=== PATIENT | female | born 1965 | race African-American/Black ===

== ENCOUNTER 2016-08-30 14:21 | Emergency (ER) ==
--- NOTE | 2016-08-30 15:05 | REP ---
Clinical: Trauma. Technique: AP, lateral, bilateral oblique views of the left ankle. Findings: Nondisplaced oblique fracture of the distal fibular metaphysis appreciated. Diffuse soft tissue swelling noted. Ankle mortise appears intact. Impression: Nondisplaced oblique fracture of the distal fibular metaphysis. Signed by Nabor Guzman MD 08/30/2016 02:56 P
[2016-08-30] MEDS ORDERED: NORCO, ANEXSIA 5/325MG TABLET (HYDROcodone/ACETAMINOPHEN) As Ordered ONE (15:08)
[2016-08-30] MEDS ORDERED: ONDANSETRON 4 MG ORAL DISINTEGRATING TAB (S0181) As Ordered ONE (15:08)
--- NOTE | 2016-08-30 15:36 | EDDOCDS ---
Nurse's Notes [facility] Name: Tiffany Antoine Age: 51 yrs Sex: Female : 1965 Arrival Date: 08/30/2016 Time: 14:21 Bed I6 / 28 Private MD: NO PRIMARY PHYSICIAN, . Diagnosis: Nondisplaced fracture of lateral malleolus of left fibula Presentation: 08/30 14:36 Presenting complaint: Patient states: left ankle injury after falling down stairs at [facility] 0100 today. swelling to outer aspect of ankle. The patients lower extremity appears normal on examination. Adult Sepsis Screening: The patient does not have new or worsening altered mentation. Patient's respiratory rate is less than 22. Systolic blood pressure is greater than 100. Patient has a qSOFA score of 0- Negative Sepsis Screen. Suicide/Homicide risk assessment- the patient denies having any suicidal and/or homicidal ideations and does not present with any other emotional, behavioral or mental health complaints. Status: Patient is not a web services professional or dependent. Transition of care: patient was not received from another setting of care. 14:36 Acuity: LUCIA Level 4 [facility] 14:36 Method Of Arrival: Wheelchair [facility] Triage Assessment: 14:38 General: Appears in no apparent distress, Behavior is appropriate for age, cooperative. srm Pain: Pain currently is 10 out of 10 on a pain scale. 14:39 Pt Declines HIV testing. Musculoskeletal: Capillary refill < 3 seconds in left toes No srm deformity noted Reports pain in left ankle. Historical: - Allergies: IODINEIODINE CONTAINING; Betadine; provodone; - Home Meds: 1. none - PMHx: Seizure Disorder; - PSHx: Tubal ligation; Tonsillectomy; - Social history: Smoking status: Patient uses tobacco products, current every day smoker. No barriers to communication noted, The patient speaks fluent [place]inean, Speaks appropriately for age. - Family history: Not pertinent. - : The pt / caregiver states he / she is not on anticoagulants. Home medication list is obtained from the patient. - Exposure Risk Screening:: None identified. Screenin:31 Screening information is obtained from the patient. Fall risk: No risks identified. mcp Assistance ADL's: requires no assistance with activities of daily living. Abuse/DV Screen: The patient / caregiver reports he/she is: not in a situation that causes fear, pain or injury. Nutritional screening: No deficits noted. Advance Directives: Currently, there is no health care proxy. There is no active DNR order. There is no Power of Line Tender [place]. home support is adequate. Assessment: 15:00 General: Appears uncomfortable, Behavior is cooperative. Pain: Location: left lateral mcp ankle Pain currently is 6 out of 10 on a pain scale. Neurological: No deficits noted. Respiratory: Airway is patent Respiratory effort is even, unlabored. Derm: Skin is pink, warm & dry. Musculoskeletal: Circulation, motion, and sensation intact Swelling present in left lateral ankle Signs and Symptoms of Compartment Syndrome: no signs of compartment syndrome. Vital Signs: 14:23 BP 127 / 76; Pulse 90; Resp 18 S; Temp 97.3(O); Pulse Ox 98% on R/A; Weight 72.57 kg gr2 (R); Height 5 ft. 3 in. (160.02 cm) (R); Pain 10/10; 14:23 Body Mass Index 28.34 (72.57 kg, 160.02 cm) gr2 Vitals: 14:23 Log In Time: August 30, 2016 at 14:23. gr2 ED Course: 14:22 Patient visited by Ronda Montes. gr2 14:22 Patient moved to Waiting gr2 14:23 NO PRIMARY PHYSICIAN, . is Private Physician. gr2 14:27 Patient visited by Ronda Montes. gr2 14:28 Patient moved to Pre RCE gr2 14:37 Triage Initiated srm 14:54 Patient moved to I6 / 28 kr3 14:58 [facility] cc10 14:58 Brandan Gandara MD is Attending Physician. cc10 14:58 Patient visited by Leonardo Orellana PA-C. cc10 14:58 Patient visited by Leonardo Orellana PA-C. cc10 15:12 Patient visited by Mindy Torres RN. [facility] 15:17 [facility] is Referral Physician. cc10 15:20 Ankle, Complete Returned. EDMS 15:32 The patient / caregiver is instructed regarding the plan of care and ED course. Patient mcp has correct armband on for positive identification. Bed in low position. Call light in reach. Adult w/ patient. 15:32 No IV's were initiated during this patient's visit. No procedures done that require mcp assistance. Crutch training done. Posterior lower leg splint applied on left leg. Patient with positive distal sensation and brisk distal capillary refill after application. Administered Medications: 15:12 Drug: HYDROcodone-acetaminophen 2 tabs [hydrocodone 5 mg-acetaminophen 325 mg tablet (2 mcp tabs)] Route: PO; 15:12 Drug: Ondansetron ODT 4 mg [ondansetron 4 mg disintegrating tablet (1 tabs)] Route: PO; [facility] Order Results: Radiology Order: Ankle, Complete Test: Ankle, Complete REASON FOR EXAMINATION: Trauma; Clinical: Trauma.; ; Technique: AP, lateral, bilateral oblique views of the left ankle.; ; Findings:; Nondisplaced oblique fracture of the distal fibular metaphysis appreciated.; Diffuse soft tissue swelling noted. Ankle mortise appears intact.; ; Impression:; Nondisplaced oblique fracture of the distal fibular metaphysis.; ; ; Signed by; Nabor Guzman MD 08/30/2016 02:56 P; Outcome: 15:17 Discharge ordered by Provider. cc10 15:34 Discharge Assessment: patient administered narcotics - yes. Pt provided with safe mcp discharge. The following High Risk Discharge criteria are identified: None. Discharged to home via wheelchair, with crutches, with family. Condition: stable. Discharge instructions given to patient, Instructed on discharge instructions, follow up and referral plans. medication usage, no driving heavy equipment, no drinking with medication, Demonstrated understanding of instructions, crutch walking, medications, Pt was receptive of discharge instructions/ teaching. Prescriptions given X 1. No special radiology studies were completed. Property sent home with patient. 15:35 Patient left the ED. [facility] Signatures: Dispatcher Med[employer] EDMS Kristy Rivas RN Mindy Bell RN RN mcp Robie, Kathleen, RN RN julia3 Ronda Montes 2 Leonardo Orellana PA-C PA-C cc10 MTDD
--- NOTE | 2016-08-30 15:36 | EDDOCDS ---
Physician Documentation [facility] Name: Tiffany Antoine Age: 51 yrs Sex: Female : 1965 Arrival Date: 08/30/2016 Time: 14:21 Bed I6 28 Private MD: NO PRIMARY PHYSICIAN, . Disposition: 08/30/16 15:17 Discharged to Home/Self Care. Impression: Nondisplaced fracture of lateral malleolus of left fibula. - Condition is Stable. - Discharge Instructions: Ankle Fracture. - Prescriptions for Hydrocodone- Acetaminophen 5-325 mg Oral Tablet - take 1 tablet by ORAL route every 6 hours As needed MDD: 4 tabs; 16 tablet. - Medication Reconciliation, Local Pharmacy [facility], [facility] Followup form. - Follow up: Emergency Department; When: As needed; Reason: Worsening of conditions. Follow up: [facility]; When: Call to arrange an appointment; Reason: Wound/Symptom Recheck, Recheck today's complaints, Worsening of conditions, Continuance of care. - Problem is new. - Symptoms have improved. Historical: - Allergies: IODINEIODINE CONTAINING; Betadine; provodone; - Home Meds: 1. none - PMHx: Seizure Disorder; - PSHx: Tubal ligation; Tonsillectomy; - Social history: Smoking status: Patient uses tobacco products, current every day smoker. No barriers to communication noted, The patient speaks fluent Mohawk, Speaks appropriately for age. - Family history: Not pertinent. - : The pt / caregiver states he / she is not on anticoagulants. Home medication list is obtained from the patient. - Exposure Risk Screening:: None identified. Vital Signs: 08/30 14:23 BP 127 / 76; Pulse 90; Resp 18 S; Temp 97.3(O); Pulse Ox 98% on R/A; Weight 72.57 kg / gr2 159.99 lbs (R); Height 5 ft. 3 in. (160.02 cm) (R); Pain 10/10; 14:23 Body Mass Index 28.34 (72.57 kg, 160.02 cm) gr2 Procedures: 15:07 Fracture care/splinting: (Stabilizing Care) Splint applied to left lateral ankle using cc10 Orthoglass splint, applied by myself. Examined by me, post splint application: neurovascular intact, 2+ distal pulses palpable, brisk capillary refill noted, Patient tolerated well. MDM: 14:41 Ankle, Complete Ordered. EDMS 15:06 HYDROcodone-acetaminophen 5 mg-325 mg 2 tabs PO once ordered. cc10 15:06 Ondansetron ODT Oral Disintegrating Tablet 4 mg PO once ordered. cc10 15:06 Crutches ordered. cc10 Administered Medications: 15:12 Drug: HYDROcodone-acetaminophen 2 tabs [hydrocodone 5 mg-acetaminophen 325 mg tablet (2 mcp tabs)] Route: PO; 15:12 Drug: Ondansetron ODT 4 mg [ondansetron 4 mg disintegrating tablet (1 tabs)] Route: PO; [facility] Signatures: Dispatcher [employer]Host EDKristy Umanzor RN RN srm Peters, Mary, RN RN mcp [place]iski, Colin, PANagi PA-Adonay cc10 JELLY
--- NOTE | 2016-09-01 16:36 | EDDOCDS ---
Physician Documentation [facility] Name: Tiffany Antoine Age: 51 yrs Sex: Female : 1965 Arrival Date: 08/30/2016 Time: 14:21 Bed I6 / 28 Private MD: NO PRIMARY PHYSICIAN, . Disposition: 08/30/16 15:17 Discharged to Home/Self Care. Impression: Nondisplaced fracture of lateral malleolus of left fibula. - Condition is Stable. - Discharge Instructions: Ankle Fracture. - Prescriptions for Hydrocodone- Acetaminophen 5-325 mg Oral Tablet - take 1 tablet by ORAL route every 6 hours As needed MDD: 4 tabs; 16 tablet. - Medication Reconciliation, Local Pharmacy [facility], [facility] Followup form. - Follow up: Emergency Department; When: As needed; Reason: Worsening of conditions. Follow up: [facility]; When: Call to arrange an appointment; Reason: Wound/Symptom Recheck, Recheck today's complaints, Worsening of conditions, Continuance of care. - Problem is new. - Symptoms have improved. Historical: - Allergies: IODINEIODINE CONTAINING; Betadine; provodone; - Home Meds: 1. none - PMHx: Seizure Disorder; - PSHx: Tubal ligation; Tonsillectomy; - Social history: Smoking status: Patient uses tobacco products, current every day smoker. No barriers to communication noted, The patient speaks fluent Luxembourgish, Speaks appropriately for age. - Family history: Not pertinent. - : The pt / caregiver states he / she is not on anticoagulants. Home medication list is obtained from the patient. - Exposure Risk Screening:: None identified. Vital Signs: 08/30 14:23 BP 127 / 76; Pulse 90; Resp 18 S; Temp 97.3(O); Pulse Ox 98% on R/A; Weight 72.57 kg / gr2 159.99 lbs (R); Height 5 ft. 3 in. (160.02 cm) (R); Pain 10/10; 15:36 BP 135 / 81; Pulse 70; Resp 18; Temp 96.7(T); Pulse Ox 95% on R/A; Pain 6/10; mcp 14:23 Body Mass Index 28.34 (72.57 kg, 160.02 cm) gr2 Procedures: 15:07 Fracture care/splinting: (Stabilizing Care) Splint applied to left lateral ankle using cc10 Orthoglass splint, applied by myself. Examined by me, post splint application: neurovascular intact, 2+ distal pulses palpable, brisk capillary refill noted, Patient tolerated well. MDM: 14:41 Ankle, Complete Ordered. EDMS 15:06 HYDROcodone-acetaminophen 5 mg-325 mg 2 tabs PO once ordered. cc10 15:06 Ondansetron ODT Oral Disintegrating Tablet 4 mg PO once ordered. cc10 15:06 Crutches ordered. cc10 08/31 09:51 T-Sheet-- Draft Copy was scanned into [employer] and attached to record. klr Administered Medications: 08/30 15:12 Drug: HYDROcodone-acetaminophen 2 tabs [hydrocodone 5 mg-acetaminophen 325 mg tablet (2 mcp tabs)] Route: PO; 15:12 Drug: Ondansetron ODT 4 mg [ondansetron 4 mg disintegrating tablet (1 tabs)] Route: PO; mcp Signatures: Dispatcher MedHost EDWY Kristy Rivas RN RN [facility] Mindy Torres RN RN [facility] Leonardo Orellana PA-C PAPatricia Oh The chart was reviewed and I authenticate all verbal orders and agree with the evaluation and treatment provided.Attachments: 08/31 09:51 T-Sheet-- Draft Copy klr Chart Complete MTDD
--- NOTE | 2016-09-01 16:36 | EDDOCDS ---
Nurse's Notes [facility] Name: Tiffany Antoine Age: 51 yrs Sex: Female : 1965 Arrival Date: 08/30/2016 Time: 14:21 Bed I6 / 28 Private MD: NO PRIMARY PHYSICIAN, . Diagnosis: Nondisplaced fracture of lateral malleolus of left fibula Presentation: 08/30 14:36 Presenting complaint: Patient states: left ankle injury after falling down stairs at [facility] 0100 today. swelling to outer aspect of ankle. The patients lower extremity appears normal on examination. Adult Sepsis Screening: The patient does not have new or worsening altered mentation. Patient's respiratory rate is less than 22. Systolic blood pressure is greater than 100. Patient has a qSOFA score of 0- Negative Sepsis Screen. Suicide/Homicide risk assessment- the patient denies having any suicidal and/or homicidal ideations and does not present with any other emotional, behavioral or mental health complaints. Status: Patient is not a senior web services developer or dependent. Transition of care: patient was not received from another setting of care. 14:36 Acuity: LUCIA Level 4 [facility] 14:36 Method Of Arrival: Wheelchair [facility] Triage Assessment: 14:38 General: Appears in no apparent distress, Behavior is appropriate for age, cooperative. srm Pain: Pain currently is 10 out of 10 on a pain scale. 14:39 Pt Declines HIV testing. Musculoskeletal: Capillary refill < 3 seconds in left toes No srm deformity noted Reports pain in left ankle. Historical: - Allergies: IODINEIODINE CONTAINING; Betadine; provodone; - Home Meds: 1. none - PMHx: Seizure Disorder; - PSHx: Tubal ligation; Tonsillectomy; - Social history: Smoking status: Patient uses tobacco products, current every day smoker. No barriers to communication noted, The patient speaks fluent Martiniquais, Speaks appropriately for age. - Family history: Not pertinent. - : The pt / caregiver states he / she is not on anticoagulants. Home medication list is obtained from the patient. - Exposure Risk Screening:: None identified. Screenin:31 Screening information is obtained from the patient. Fall risk: No risks identified. mcp Assistance ADL's: requires no assistance with activities of daily living. Abuse/DV Screen: The patient / caregiver reports he/she is: not in a situation that causes fear, pain or injury. Nutritional screening: No deficits noted. Advance Directives: Currently, there is no health care proxy. There is no active DNR order. There is no Power of Mill Worker. home support is adequate. Assessment: 15:00 General: Appears uncomfortable, Behavior is cooperative. Pain: Location: left lateral mcp ankle Pain currently is 6 out of 10 on a pain scale. Neurological: No deficits noted. Respiratory: Airway is patent Respiratory effort is even, unlabored. Derm: Skin is pink, warm & dry. Musculoskeletal: Circulation, motion, and sensation intact Swelling present in left lateral ankle Signs and Symptoms of Compartment Syndrome: no signs of compartment syndrome. Vital Signs: 14:23 BP 127 / 76; Pulse 90; Resp 18 S; Temp 97.3(O); Pulse Ox 98% on R/A; Weight 72.57 kg gr2 (R); Height 5 ft. 3 in. (160.02 cm) (R); Pain 10/10; 15:36 BP 135 / 81; Pulse 70; Resp 18; Temp 96.7(T); Pulse Ox 95% on R/A; Pain 6/10; mcp 14:23 Body Mass Index 28.34 (72.57 kg, 160.02 cm) gr2 Vitals: 14:23 Log In Time: August 30, 2016 at 14:23. gr2 ED Course: 14:22 Patient visited by Ronda Montes. gr2 14:22 Patient moved to Waiting gr2 14:23 NO PRIMARY PHYSICIAN, . is Private Physician. gr2 14:27 Patient visited by Ronda Montes. gr2 14:28 Patient moved to Pre RCE gr2 14:37 Triage Initiated srm 14:54 Patient moved to I6 / 28 kr3 14:58 Leonardo Orellana PA-C is [facility]. cc10 14:58 Brandan Gandara MD is Attending Physician. cc10 14:58 Patient visited by Leonardo Orellana PA-C. cc10 14:58 Patient visited by Leonardo Orellana PA-C. cc10 15:12 Patient visited by Mindy Torres RN. [facility] 15:17 [facility] is Referral Physician. cc10 15:20 Ankle, Complete Returned. EDMS 15:32 The patient / caregiver is instructed regarding the plan of care and ED course. Patient mcp has correct armband on for positive identification. Bed in low position. Call light in reach. Adult w/ patient. 15:32 No IV's were initiated during this patient's visit. No procedures done that require mcp assistance. Crutch training done. Posterior lower leg splint applied on left leg. Patient with positive distal sensation and brisk distal capillary refill after application. 08/31 09:51 T-Sheet-- Draft Copy was scanned into [employer] and attached to record. klr Administered Medications: 08/30 15:12 Drug: HYDROcodone-acetaminophen 2 tabs [hydrocodone 5 mg-acetaminophen 325 mg tablet (2 mcp tabs)] Route: PO; 15:12 Drug: Ondansetron ODT 4 mg [ondansetron 4 mg disintegrating tablet (1 tabs)] Route: PO; [facility] Order Results: Radiology Order: Ankle, Complete Test: Ankle, Complete REASON FOR EXAMINATION: Trauma; Clinical: Trauma.; ; Technique: AP, lateral, bilateral oblique views of the left ankle.; ; Findings:; Nondisplaced oblique fracture of the distal fibular metaphysis appreciated.; Diffuse soft tissue swelling noted. Ankle mortise appears intact.; ; Impression:; Nondisplaced oblique fracture of the distal fibular metaphysis.; ; ; Signed by; Nabor Guzman MD 08/30/2016 02:56 P; Outcome: 15:17 Discharge ordered by Provider. cc10 15:34 Discharge Assessment: patient administered narcotics - yes. Pt provided with safe mcp discharge. The following High Risk Discharge criteria are identified: None. Discharged to home via wheelchair, with crutches, with family. Condition: stable. Discharge instructions given to patient, Instructed on discharge instructions, follow up and referral plans. medication usage, no driving heavy equipment, no drinking with medication, Demonstrated understanding of instructions, crutch walking, medications, Pt was receptive of discharge instructions/ teaching. Prescriptions given X 1. No special radiology studies were completed. Property sent home with patient. 15:35 Patient left the ED. [facility] Signatures: Dispatcher [facility] EDMS Kristy Rivas RN RN srm Peters, Mary, RN RN mcp Robie, Kathleen, RN RN kr3 Ronda Montes 2 Leonardo Orellana PA-C PA-C cc10 Patricia France Chart Complete MTDD
--- NOTE | 2016-09-01 16:36 | EDDOCDS ---
Physician Documentation [facility] Name: Tiffany Antoine Age: 51 yrs Sex: Female : 1965 Arrival Date: 08/30/2016 Time: 14:21 Bed I6 / 28 Private MD: NO PRIMARY PHYSICIAN, . Disposition: 08/30/16 15:17 Discharged to Home/Self Care. Impression: Nondisplaced fracture of lateral malleolus of left fibula. - Condition is Stable. - Discharge Instructions: Ankle Fracture. - Prescriptions for Hydrocodone- Acetaminophen 5-325 mg Oral Tablet - take 1 tablet by ORAL route every 6 hours As needed MDD: 4 tabs; 16 tablet. - Medication Reconciliation, Local Pharmacy [facility], [facility] Followup form. - Follow up: Emergency Department; When: As needed; Reason: Worsening of conditions. Follow up: [facility]; When: Call to arrange an appointment; Reason: Wound/Symptom Recheck, Recheck today's complaints, Worsening of conditions, Continuance of care. - Problem is new. - Symptoms have improved. Historical: - Allergies: IODINEIODINE CONTAINING; Betadine; provodone; - Home Meds: 1. none - PMHx: Seizure Disorder; - PSHx: Tubal ligation; Tonsillectomy; - Social history: Smoking status: Patient uses tobacco products, current every day smoker. No barriers to communication noted, The patient speaks fluent Setswana, Speaks appropriately for age. - Family history: Not pertinent. - : The pt / caregiver states he / she is not on anticoagulants. Home medication list is obtained from the patient. - Exposure Risk Screening:: None identified. Vital Signs: 08/30 14:23 BP 127 / 76; Pulse 90; Resp 18 S; Temp 97.3(O); Pulse Ox 98% on R/A; Weight 72.57 kg / gr2 159.99 lbs (R); Height 5 ft. 3 in. (160.02 cm) (R); Pain 10/10; 15:36 BP 135 / 81; Pulse 70; Resp 18; Temp 96.7(T); Pulse Ox 95% on R/A; Pain 6/10; mcp 14:23 Body Mass Index 28.34 (72.57 kg, 160.02 cm) gr2 Procedures: 15:07 Fracture care/splinting: (Stabilizing Care) Splint applied to left lateral ankle using cc10 Orthoglass splint, applied by myself. Examined by me, post splint application: neurovascular intact, 2+ distal pulses palpable, brisk capillary refill noted, Patient tolerated well. MDM: 14:41 Ankle, Complete Ordered. EDMS 15:06 HYDROcodone-acetaminophen 5 mg-325 mg 2 tabs PO once ordered. cc10 15:06 Ondansetron ODT Oral Disintegrating Tablet 4 mg PO once ordered. cc10 15:06 Crutches ordered. cc10 08/31 09:51 T-Sheet-- Draft Copy was scanned into [employer] and attached to record. klr Administered Medications: 08/30 15:12 Drug: HYDROcodone-acetaminophen 2 tabs [hydrocodone 5 mg-acetaminophen 325 mg tablet (2 mcp tabs)] Route: PO; 15:12 Drug: Ondansetron ODT 4 mg [ondansetron 4 mg disintegrating tablet (1 tabs)] Route: PO; mcp Signatures: Dispatcher MedHost EDND Kristy Rivas RN RN [facility] Mindy Torres RN RN [facility] Leonardo Orellana PA-C PAPatricia Oh The chart was reviewed and I authenticate all verbal orders and agree with the evaluation and treatment provided.Attachments: 08/31 09:51 T-Sheet-- Draft Copy klr Chart Complete MTDD
== END 2016-08-30 15:35 | disposition home or self-care (01) ==
LOC: M ED 14:21
DX: S82.435A Nondisplaced oblique fracture of shaft of left fibula, initial encounter for closed fracture (principal); W10.8XXA Fall (on) (from) other stairs and steps, initial encounter; Y92.098 Other place in other non-institutional residence as the place of occurrence of the external cause; Y93.89 Activity, other specified; Y99.8 Other external cause status; F17.210 Nicotine dependence, cigarettes, uncomplicated; Z88.8 Allergy status to other drugs, medicaments and biological substances

== ENCOUNTER → 2017-03-16 | Outpatient (RCR) | payer MEDICAID, OTHER | LOC: M PT 02-21 15:14 | PROVIDERS: ATTEND Physician Assistant | DX: Z51.89 Encounter for other specified aftercare (principal); S82.899D Other fracture of unspecified lower leg, subsequent encounter for closed fracture with routine healing ==

== ENCOUNTER 2017-04-13 15:15 | Outpatient (RCR) | payer OTHER | END 2017-04-15 | disposition home or self-care (01) | LOC: M PT 15:15 | PROVIDERS: ATTEND Physician Assistant | DX: Z51.89 Encounter for other specified aftercare (principal) ==

== ENCOUNTER 2017-05-11 14:30 | Outpatient (RCR) | payer OTHER | END 2017-05-16 | LOC: M PT 14:30 | PROVIDERS: ATTEND Physician Assistant | DX: Z51.89 Encounter for other specified aftercare (principal) ==

== ENCOUNTER 2018-03-12 11:36 | Emergency (ER) | payer OTHER ==
[2018-03-12] MEDS: diphenhydrAMINE INJ 50MG/ML VIAL (J1200) IV (13:13)
[2018-03-12] MEDS: KETOROLAC 30 MG/ML VIAL (J1885) IV (13:13)
[2018-03-12] MEDS: NS 1,000 ML IV (13:13)
[2018-03-12] MEDS: METOCLOPRAMIDE INJ 10MG/2ML VIAL (J2765) IV (13:13)
== END 2018-03-12 14:17 | disposition home or self-care (01) ==
LOC: M ED 11:36
DX: G43.909 Migraine, unspecified, not intractable, without status migrainosus (principal); Z86.73 Personal history of transient ischemic attack (TIA), and cerebral infarction without residual deficits; Z91.89 Other specified personal risk factors, not elsewhere classified
CPT/HCPCS: J1200

== ENCOUNTER → 2018-04-10 | Outpatient (REF) | payer OTHER ==
[2018-04-10 14:14] LABS: BASO # 0.1 10^3/uL (0.0-0.2); BASO % 0.6 % (0.0-1.0); EOS # 0.4 10^3/uL (0.0-0.50); EOS % 4.8 % (0.0-3.0); HEMATOCRIT 39.5 % (36.0-47.0); HEMOGLOBIN 14.1 g/dl (12.0-15.5); IMMATURE GRANULOCYTE % 0.4 % (0-3.0); LYMPH % 37.4 % (24.0-44.0); MEAN CORPUSCULAR HEMOGLOBIN 30.6 pg (27.0-33.0); MEAN CORPUSCULAR HGB CONC 35.7 g/dl (32.0-36.5); MEAN CORPUSCULAR VOLUME 85.7 fl (80.0-96.0); MONO # 0.3 10^3/uL (0.0-0.8); MONO % 4.3 % (0.0-5.0); NEUTROPHILS # 4.1 10^3/uL (1.8-7.7); NEUTROPHILS % 52.5 % (36.0-66.0); PLATELET COUNT, AUTOMATED 304 10^3/uL (150-450); RED BLOOD COUNT 4.61 10^6/uL (4.00-5.40); RED CELL DISTRIBUTION WIDTH 14.6 % (11.5-14.5); WHITE BLOOD COUNT 7.9 10^3/uL (4.0-10.0)
[2018-04-10 14:47] LABS: CHLORIDE LEVEL 105 MEQ/L (98-107); FOLATE 3.4 NG/ML; POTASSIUM SERUM 4.1 MEQ/L (3.5-5.1); SODIUM LEVEL 141 MEQ/L (136-145)
[2018-04-10 15:00] LABS: ESTIMATED AVERAGE GLUCOSE 117 MG/DL (60-110); HEMOGLOBIN A1c 5.7 %
[2018-04-10 15:15] LABS: ERYTHROCYTE SEDIMENTATION RATE 16 mm/hr (0-30)
[2018-04-10 15:37] LABS: ALBUMIN 4.3 GM/DL (3.2-5.2); ALBUMIN/GLOBULIN RATIO 1.43 (1.00-1.93); ALKALINE PHOSPHATASE 91 U/L (45-117); ALT/SGPT 31 U/L (12-78); ANION GAP 12 MEQ/L (8-16); AST/SGOT 15 U/L (7-37); BILIRUBIN,TOTAL 0.7 MG/DL (0.2-1.0); BLOOD UREA NITROGEN 7 MG/DL (7-18); CALCIUM LEVEL 9.6 MG/DL (8.5-10.1); CARBON DIOXIDE LEVEL 24 MEQ/L (21-32); CHOLESTEROL LEVEL 234 MG/DL (<200); CREATININE FOR GFR 0.92 MG/DL (0.55-1.30); FREE T4 1.09 NG/DL (0.76-1.46); GLOMERULAR FILTRATION RATE > 60.0 (>51); GLUCOSE, FASTING 92 MG/DL (70-100); HDL CHOLESTEROL 50 MG/DL (>40); LDL CHOLESTEROL 152 MG/DL (<100); NON-HDL-C 184 MG/DL; RHEUMATOID FACTOR QUANT < 10.0 IU/ML (<15.0); THYROID STIMULATING HORMONE 0.981 uIU/ML (0.358-3.740); TOTAL PROTEIN 7.3 GM/DL (6.4-8.2); TRIGLYCERIDES LEVEL 158 MG/DL (<150)
[2018-04-17 00:07] LABS: ANCA-ATYPICAL <1:20 titer (Neg:<1:20); ANTI THROMBIN 3 ANTIGEN IMMUNO 122 % (72-124); ANTI THROMBIN 3 FUNCT ACTIVITY 132 % (75-135); CYTOPLASMIC NEUTROP AB ANCA-C <1:20 titer (Neg:<1:20); PERINUCLEAR AB ANCA-P <1:20 titer (Neg:<1:20); PROTEIN C FUNCTIONAL ACTIVITY 132 % (73-180); PROTEIN S FUNCTIONAL ACTIVITY 110 % (63-140); VITAMIN E(ALPHA TOCOPHEROL) 14.9 mg/L (7.0-25.1); VITAMIN E(GAMMA TOCOPHEROL) 1.4 mg/L (0.5-5.5)
[2018-04-17 00:08] LABS: ANTINUCLEAR ANTIBODIES DIRECT Negative (Negative); CARDIOLIPIN IGA ANTIBODY <9 APL U/mL (0-11); CARDIOLIPIN IGG ANTIBODY <9 GPL U/mL (0-14); CARDIOLIPIN IGM ANTIBODY 26 MPL U/mL (0-12); VITAMIN B6,PYRIDOXAL PHOSPHATE 2.4 ug/L (2.0-32.8)
[2018-04-17 10:28] LABS: DRVV SCREEN 48.8 SEC
[2018-04-17 10:30] LABS: PTT LUPUS TYPE ANTICOAG SCREEN 1.2 (0-1.2)
[2018-04-17 10:36] LABS: DRVV CONFIRM 35.7 SEC; LUPUS CONFIRM RATIO 0.9
[2018-04-17 10:37] LABS: NORMALIZED RATIO 1.33 (0.00-1.20)
[2018-04-19 00:08] LABS: HEXAGONAL PHASE PHOSPHOLIPID 0 sec (0-11)
== END ==
LOC: M LABNEURO 13:00
DX: E11.9 Type 2 diabetes mellitus without complications (principal); E07.9 Disorder of thyroid, unspecified; R20.0 Anesthesia of skin; I77.6 Arteritis, unspecified
CPT/HCPCS: 82746

== ENCOUNTER 2018-11-20 19:15 | Emergency (ER) | payer OTHER ==
[~2018-11-20] VITALS: Ht 160 cm; Wt 76.4 kg
[~2018-11-20 19:15] MED LIST: EXCETAB80 PO
[2018-11-20 19:16] VITALS: BP 167/93
== END 2018-11-20 20:52 | disposition left against medical advice (07) ==
LOC: M ED 19:15
DX: Z53.29 Procedure and treatment not carried out because of patient's decision for other reasons (principal)